=== PATIENT | male | born 1965 | race African-American/Black ===

== ENCOUNTER 2016-09-25 17:25 | Emergency (ER) | payer OTHER ==
[2016-09-25 19:33] VITALS: BP 124/73
[2016-09-25] MEDS ORDERED: HYDROmorphone* 1 MG/ML 1 ML SYR IV SLOW PU ONE (19:54)
[2016-09-25 20:24] LABS: Hematocrit 42 % (42-52); Hemoglobin 13.8 g/dl (14.0-18.0); Mean Corpuscular HGB Conc 33 g/dl (31-36); Mean Corpuscular Hemoglobin 31 pg (27-31); Mean Corpuscular Volume 93 fL (80-94); Mean Platelet Volume 8 um3 (7.4-10.4); Red Blood Count 4.47 10^6/ul (4.0-5.4); Red Cell Distribution Width 13 % (10.5-15)
--- NOTE | 2016-09-25 20:31 | ED ---
Jr Hinton Alfonso, scribed for Juma Parnell MD on 09/25/16 at 1959 . GI/ HPI - HPI Summary HPI Summary: This patient is a 51 year old M brought in my facility based transport to [facility] with a chief complaint of Priapism since 4 days ago. Pt states has been reporting this at the retirement daily but no action was taken till today when he was sent to ed. Pt rates the pain 8/10 in severity. Symptoms aggravated and alleviated by nothing. Pt denies any drug use to cause this. Pt denies PMHx of sickle cell. PMHx of epilepsy, and HIV. - History of Current Complaint Chief Complaint: EDUrogenitalProblems Time Seen by Provider: 09/25/16 19:46 Stated Complaint: PRIAPISM X 4DAYS Hx Obtained From: Patient, Medical Records Onset/Duration: Started Days Ago - 4 Timing: Constant Severity: Severe Current Severity: Severe Pain Intensity: 8 Additional Locations for Males: Penis Associated Signs and Symptoms: Negative: New Sexual Partner Aggravating Factor(s): Nothing Alleviating Factor(s): Nothing PMH/Surg Hx/FS Hx/Imm Hx Endocrine/Hematology History: Reports: Other Endocrine/Hematological Disorders - HIV Denies: Hx Sickle Cell Disease Sensory History: Denies: Hx Deafness Opthamlomology History: Denies: Hx Legally Blind Neurological History: Reports: Other Neuro Impairments/Disorders - epilepsy Infectious Disease History: Yes Infectious Disease History: Denies: Traveled Outside the [place] in Last 30 Days - Family History Known Family History: Positive: Unknown - Due to pt being a poor historian - Social History Alcohol Use: None Substance Use Type: Reports: None Hx Tobacco Use: No Review of Systems Negative: Fever Positive: other - Positive Priapism All Other Systems Reviewed And Are Negative: Yes Physical Exam Triage Information Reviewed: Yes Vital Signs On Initial Exam: Initial Vitals Temp Pulse Resp BP Pulse Ox 100.3 F 99 20 116/74 99 09/25/16 18:46 09/25/16 18:46 09/25/16 18:46 09/25/16 18:46 09/25/16 18:46 Vital Signs Reviewed: Yes Appearance: Positive: Well-Appearing, Pain Distress - moderate discomfort Skin: Positive: Warm Head/Face: Positive: Normal Head/Face Inspection Eyes: Positive: CHRISTINA ENT: Positive: Hearing grossly normal Neck: Positive: Supple Respiratory/Lung Sounds: Positive: Breath Sounds Present Cardiovascular: Positive: RRR Abdomen Description: Positive: Nontender, Soft Male Genital Exam: Positive: other - priapism present, painful to touch Musculoskeletal: Positive: Strength/ROM Intact Neurological: Positive: Alert, Oriented to Person Place, Time Diagnostics - Vital Signs Vital Signs Temp Pulse Resp BP Pulse Ox 09/25/16 19:28 100.3 F 86 18 124/73 99 09/25/16 18:46 100.3 F 99 20 116/74 99 - Laboratory Lab Results: Lab Results 09/25/16 Range/Units 20:15 WBC 15.0 H (3.5-10.8) 10^3/ul RBC 4.47 (4.0-5.4) 10^6/ul Hgb 13.8 L (14.0-18.0) g/dl Hct 42 (42-52) % MCV 93 (80-94) fL MCH 31 (27-31) pg MCHC 33 (31-36) g/dl RDW 13 (10.5-15) % Plt Count 414 (150-450) 10^3/ul MPV 8 (7.4-10.4) um3 Neut % (Auto) 79.6 (38-83) % Lymph % (Auto) 10.9 L (25-47) % Yell % (Auto) 8.4 (1-9) % Eos % (Auto) 0.4 (0-6) % Baso % (Auto) 0.7 (0-2) % Absolute Neuts (auto) 11.9 H (1.5-7.7) 10^3/ul Absolute Lymphs (auto) 1.6 (1.0-4.8) 10^3/ul Absolute Monos (auto) 1.3 H (0-0.8) 10^3/ul Absolute Eos (auto) 0.1 (0-0.6) 10^3/ul Absolute Basos (auto) 0.1 (0-0.2) 10^3/ul Absolute Nucleated RBC 0.01 10^3/ul Nucleated RBC % 0 Sickle Cell Screen Pending Result Diagrams: 09/25/16 20:15 Lab Statement: Any lab studies that have been ordered have been reviewed, and results considered in the medical decision making process. GIGU Course/Dx - Course Assessment/Plan: 51 year old M brought in my facility based transport to [facility] with a chief complaint of Priapism since 4 days ago. Pt rates the pain 8/10 in severity. Symptoms aggravated and alleviated by nothing. Pt denies PMHx of sickle cell. PMHx of epilepsy, and HIV. We discussed patient care with Dr. Delgado (urologist) and they recommended transfer to a higher level facility. Patient will be transfered by ambulance to [facility]. Pt is agreeable with this plan. - Diagnoses Provider Diagnoses: Priapism - Physician Notifications Discussed Care Of Patient With: Jeovanny Delgado Time Discussed With Above Provider: 19:59 Instructed by Provider To: Other - Dr. Delgado (urologist) recommends transfer. Discharge - Discharge Plan Condition: Fair Disposition: TRANS HIGHER LVL OF CARE FAC Referrals: Roula MTZ,Pam Mcduffie [Primary Care Provider] - The documentation as recorded by the Jr rodríguez Alfonso accurately reflects the service I personally performed and the decisions made by me, Juma Parnell MD.
[2016-09-25 20:40] LABS: BUN/Creatinine Ratio 8.8 (8-20); Calcium 9.3 mg/dL (8.6-10.3); EGFR African American 131.1 (>60); EGFR Non-African American 101.9 (>60); Globulin 3.4 g/dL (2-4); Potassium 3.8 mmol/L (3.5-5.0); Total Bilirubin 0.8 mg/dL (0.2-1.0); Total Protein 7.4 g/dL (6.4-8.9)
== END 2016-09-25 20:45 | disposition short-term general hospital (02) ==
LOC: ED 17:25
DX: N48.30 Priapism, unspecified (principal)
CPT/HCPCS: 36415; 80053; 85025; 85660; 86850; 86900; 86901; 96374; 99282; J1170